=== PATIENT | female | born 1950 | race Caucasian/White ===

== ENCOUNTER 2023-04-11 10:50 | Outpatient (CLI) | payer OTHER, MEDICARE, MEDICAID, SELFPAY | END 2023-04-11 10:51 | disposition home or self-care (01) | LOC: RAD 10:54 | PROVIDERS: PCP Family Medicine; Visit Provider Family Medicine | DX: M47.817 Spondylosis without myelopathy or radiculopathy, lumbosacral region (principal); M51.36 Other intervertebral disc degeneration, lumbar region; M54.16 Radiculopathy, lumbar region | CPT/HCPCS: 64483; J1100; Q9966 ==

== ENCOUNTER 2023-04-25 14:09 | Outpatient (CLI) | payer OTHER, MEDICARE, MEDICAID, SELFPAY | END 2023-04-25 14:10 | disposition home or self-care (01) | LOC: INJ CL 14:12 | PROVIDERS: PCP Family Medicine; Visit Provider Family Medicine | DX: M17.11 Unilateral primary osteoarthritis, right knee (principal); M25.561 Pain in right knee | CPT/HCPCS: 64454 ==

== ENCOUNTER 2023-05-16 12:12 | Outpatient (CLI) | payer OTHER, MEDICARE, MEDICAID, SELFPAY | END 2023-05-16 12:13 | disposition home or self-care (01) | LOC: INJ CL 12:13 | PROVIDERS: PCP Family Medicine; Visit Provider Family Medicine | DX: M17.11 Unilateral primary osteoarthritis, right knee (principal); M25.561 Pain in right knee; G89.29 Other chronic pain | CPT/HCPCS: 64624; J2250; J3010 ==